=== PATIENT | male | born 1980 | race Caucasian/White ===

== ENCOUNTER 2017-12-17 02:05 | Emergency (ER) | payer SELFPAY ==
[~2017-12-17] VITALS: Ht 182.9 cm; Wt 77.0 kg
[2017-12-17] MEDS ORDERED: NALOXONE HCL 1 MG/ML 2ML VIAL IV ONE (02:45)
[2017-12-17 03:03] LABS: BASOPHILS % 0.4 % (0.0-2.0); EOSINOPHILS % 1.4 % (0.0-5.0); HEMATOCRIT. 40.6 % (42.0-52.0); HEMOGLOBIN. 14.1 g/dL (14.0-18.0); LYMPHOCYTES % 32.3 % (20.0-50.0); MEAN CORPUSCULAR HEMOGLOBIN 32.9 pg (28.0-32.0); MEAN CORPUSCULAR VOLUME 94.9 fL (80.0-94.0); MONOCYTES % 8.3 % (2.0-8.0); NEUTROPHILS % 57.6 % (40.0-76.0); PLATELET 221 x1000/uL (130-400); RED BLOOD CELL COUNT 4.28 mill/uL (4.7-6.1); RED CELL DISTRIBUTION WIDTH 12.6 % (11.6-14.6)
[2017-12-17 03:11] LABS: CHLORIDE 106 mEq/L (98-107)
[2017-12-17 03:16] LABS: ETHANOL BLOOD 160 mg/dL
[2017-12-17 07:05] VITALS: BP 114/62
== END 2017-12-17 07:07 | disposition home or self-care (01) ==
LOC: ER 02:10
DX: T42.4X1A Poisoning by benzodiazepines, accidental (unintentional), initial encounter (principal); R41.82 Altered mental status, unspecified; F10.10 Alcohol abuse, uncomplicated; Y90.6 Blood alcohol level of 120-199 mg/100 ml; Y92.89 Other specified places as the place of occurrence of the external cause
CPT/HCPCS: 36415; 71045; 80053; 80307; 80329; 82962; 84443; 85025; 93005; 96374; 99285; G0482; J2310